=== PATIENT | female | born 1990 | race Caucasian/White ===

== ENCOUNTER 2019-06-02 00:29 | Emergency (ER) | payer OTHER, MEDICAID ==
[2019-06-02] MEDS ORDERED: DIPHENHYDRAMINE 25 MG CAP PO (01:30)
== END 2019-06-02 01:22 | disposition home or self-care (01) ==
LOC: FTE 00:29
DX: L29.9 Pruritus, unspecified (principal); F17.210 Nicotine dependence, cigarettes, uncomplicated
CPT/HCPCS: 99283; Z7502